=== PATIENT | female | born 1945 | race Caucasian/White ===

== ENCOUNTER 2017-11-26 03:48 | Emergency (ER) | payer OTHER ==
--- NOTE | 2017-11-26 04:14 | ED GENERAL ADULT ---
History of Present Illness General Chief Complaint: Skin Rash/ Abcess Stated Complaint: "BLD BLISTER ON CHEST,SCRATCHED CONTINUE BLEED" Source: patient, family Exam Limitations: no limitations Vital Signs & Intake/Output Vital Signs & Intake/Output Vital Signs Date Time Temp Pulse Resp B/P B/P Pulse O2 O2 Flow FiO2 Mean Ox Delivery Rate 11/26 0427 98.7 84 18 135/94 95 Room Air 11/26 0400 98 Room Air Allergies Coded Allergies: Penicillins (Intermediate, RASH 11/26/17) Sulfa (Sulfonamide Antibiotics) (Intermediate, RASH 11/26/17) ciprofloxacin (From CIPRO) (Intermediate, RASH 11/26/17) codeine (Intermediate, RASH 11/26/17) nabumetone (From RELAFEN) (Intermediate, RASH 11/26/17) Reconcile Medications Amlodipine Besylate 5 MG TABLET 1 TAB PO DAILY CHOL (Reported) Dexlansoprazole (Dexilant) 60 MG CAP.DR.BP 1 CAP PO DAILY GERD (Reported) Levothyroxine Sodium 75 MCG TABLET 1 TAB PO DAILY THYROID (Reported) Rosuvastatin Calcium (Crestor) 10 MG TABLET 1 TAB PO DAILY CHOL (Reported) Triage Nurses Notes Reviewed? yes HPI: 72-year-old woman seen for evaluation of a bleeding "blood blister". Patient reports developing this small subcentimeter mid chest blood blister approximately 2 days ago "out of nowhere". She denies any recent trauma or new medications and does not take blood thinners. Patient reports that around 10 PM this evening she scratched her chest and the blood blister ruptured and was bleeding bright red blood continuously throughout the night without stopping bleeding through tonight counts. For persistence of this bleeding she came to the [place] ED. Presently she feels well and denies any fever, chills, chest pain, shortness breath. (Marquis Roach MD) Past History Travel History Traveled to [place] past 21 day No Medical History Any Pertinent Medical History? see below for history Surgical History Surgical History: non-contributory Psychosocial History What is your primary language Green[place]ic Family History Hx Contributory? No (Marquis Roach MD) Review of Systems Review of Systems Constitutional: Reports: see HPI. (Marquis Roach MD) Physical Exam Physical Exam General Appearance: well developed/nourished, no apparent distress, alert, awake , comfortable Comments: General - well developed, well nourished elderly woman in no acute distress HEENT - NCAT, PERRL, EOMI, anicteric sclera Neck- Supple, no JVD/HJR, no bruits, trachea midline, thyroid normal Cardio/chest S1, S2 w/o murmurs/gallops/rubs; regular rate and rhythm, <1 cm area of open skin bleeding scant amount of bright red blood Resp - Clear to auscultation bilaterally GI - Soft, nontender, nondistended, bowel sounds present Neuro - Awake and alert, CN II - XII grossly intact Extremities - No edema, pulses intact Core Measures ACS in differential dx? No CVA/TIA Diagnosis: No Sepsis Present: No Sepsis Focused Exam Completed? No (Marquis Roach MD) Progress Differential Diagnoses I considered the following diagnoses in my evaluation of the patient: Bleeding blister Plan of Care: See above Initial ED EKG: none Comments: Patient reports history of a blood blister in the center of her chest of unknown etiology. Vital signs and physical exam remained unremarkable other than a small open area in her mid chest bleeding bright red blood. Dermabond was applied to the area with good control of the bleeding. Patient is being discharged home with instruction to follow-up with her PCP or return to the ED for recurrent bleeding. (Marquis Roach MD) Departure Departure Disposition: HOME OR SELF CARE Condition: Stable Clinical Impression Primary Impression: Blister Referrals: Angelita LAIRD,Jcarlos (PCP/Family) Additional Instructions: Keep the area of bleeding dry and avoid further trauma. Return to the ED for further bleeding. Departure Forms: Customer Survey General Discharge Information (Marquis Roach MD) Departure Comments I saw and personally evaluated the patient and I agree with Dr. Mancilla's evaluation. Chronic anterior chest lesion that was scratched and bleed. No active bleeding in the Emergency Department. (Carlos Enrique Decker DO) Critical Care Note Critical Care Note Critical Care Time: non-applicable (Marquis Roach MD)
[2017-11-26 04:27] VITALS: BP 135/94
[2017-11-26] MEDS ORDERED: AMLODIPINE BESYL5 M1 PO (05:03)
[2017-11-26] MEDS ORDERED: DEXILANT60 M1 PO (05:03)
[2017-11-26] MEDS ORDERED: CRESTOR10 M1 PO (05:04)
[2017-11-26] MEDS ORDERED: LEVOTHYROXINE75 MCG PO (05:04)
== END 2017-11-26 05:04 ==
LOC: ERH 03:48
DX: R23.8 Other skin changes (principal)
CPT/HCPCS: 99282